=== PATIENT | female | born 1990 | race Caucasian/White ===

== ENCOUNTER 2017-07-04 15:37 | Emergency (ER) | payer OTHER ==
[2017-07-04] MEDS ORDERED: KETOROLAC 30 MG/1 ML SDV IVP ONE (16:02)
[2017-07-04] MEDS ORDERED: NS 1,000 ML IV ONE ×2 (16:02→16:12)
[2017-07-04 16:11] LABS: % IMMATURE GRANULYOCYTES 0.2 % (0.0-1.1); ABSOLUTE IMMATURE GRANULOCYTES 0.03 10^3/uL (0.00-0.10); ADD DIFF? NO; ADD MORPH? NO; ADD SCAN? NO; ATYPICAL LYMPHOCYTE FLAG 0 (0-99); FRAGMENT RBC FLAG 0 (0-99); HEMATOCRIT 40.2 % (38.0-47.0); HEMOGLOBIN 14.3 g/dL (12.6-16.3); LEFT SHIFT FLG 0 (0-99); LIPEMIA HEMOLYSIS FLAG 90 (0-99); MEAN CELL HEMOGLOBIN 32.1 pg (27.9-34.1); MEAN CELL HEMOGLOBIN CONCENTR. 35.6 g/dL (32.4-36.7); MEAN CELL VOLUME 90.3 fL (81.5-99.8); MEAN PLATELET VOLUME 10.2 fL (8.7-11.7); PLATELET CLUMPS FLAG 10 (0-99); PLATELET COUNT 299 10^3/uL (150-400); RED BLOOD CELL COUNT 4.45 10^6/uL (4.18-5.33); RED CELL DISTRIBUTION WIDTH 12.1 % (11.5-15.2)
--- NOTE | 2017-07-04 16:12 | EDPHY ---
H & P Stated Complaint: POss ruptured ectopic Source: Patient Exam Limitations: No limitations - Personal History LMP (Females 10-55): Current Tetanus Diphtheria and Acellular Pertussis (TDAP): Yes - Medical/Surgical History Hx Asthma: No Hx Chronic Respiratory Disease: No Hx Diabetes: No Hx Cardiac Disease: No Hx Renal Disease: No Hx Cirrhosis: No Hx Alcoholism: No Hx HIV/AIDS: No Hx Splenectomy or Spleen Trauma: No Other PMH: . depression/anxiety - Social History Smoking Status: Current some day smoker Time Seen by Provider: 07/04/17 16:09 HPI/ROS: HPI: This is a 26-year-old female who presents with Chief Complaint: Possible ruptured ectopic Location: Left lower quadrant Quality: Sharp constant pain Duration: 45 minutes prior to arrival Signs and Symptoms: no fever, no nausea, no vomiting, no hematemesis, no blood in stool, no abdominal bloating, no diarrhea, no back pain, no urinary symptoms , + vaginal bleeding, no vaginal discharge Timing: Sudden Severity: 10 out 10 Context: . Patient reports that her OBGYN, Dr. Ryanne Donahue diagnosed her with a left ectopic last ; she was placed on methotrexate on Tuesday. She reports that she has been bleeding vaginally intermittent and small amounts for the last 4 weeks. Approximately 45 minutes prior to arrival she started to experience left lower quadrant sharp constant severe pain that was nonradiating in nature. + chills. She is extremely worried that she has a ruptured ectopic . Modifying Factors: None Comment: ROS: see HPI Constitutional: No fever, no chills, no weight loss Eyes: No blurred vision Respiratory: No shortness of breath, no cough Cardiovascular: No chest pain, no palpitations Gastrointestinal: No nausea, no vomiting, no diarrhea, no hematemesis, no blood in stool Genitourinary: No dysuria, no blood in urine Extremities: No myalgias, no edema Neurologic: No weakness, no numbness Skin: No rashes, no petechiae Hematologic: No bruising, no bleeding MEDICAL/SURGICAL/SOCIAL HISTORY: Medical history: Generally healthy. Does not take any regular medications. Surgical history: Denies Social history: Employed. CONSTITUTIONAL: Ill-appearing with moderate distress young adult white female who is actively shivering, awake and alert, pleasant and cooperative HEENT: Atraumatic and normocephalic, PERRL, EOMI. Tympanic membranes clear. Oropharynx clear, no exudate and moist pink mucosa. Airway patent. No lymphadenopathy. No meningismus. Cardiovascular: Normal S1/S2, regular rate, regular rhythm, without murmur rub or gallop. PULMONARY/CHEST: Symmetrical and nontender. Clear to auscultation bilaterally. Good air movement. No accessory muscle usage. ABDOMEN: Soft, nondistended, severe left lower quadrant tenderness, no rebound , + guarding, no peritoneal signs, no masses or organomegaly. No CVAT. EXTREMITIES: 2/2 pulses, strength 5/5, no deformities, no clubbing, no cyanosis or edema. NEUROLOGICAL: no focal neuro deficits. GCS 15. SKIN: Warm and dry, no erythema. no rash. Good capillary refill. (Fatemeh Medrano) Constitutional: Initial Vital Signs Temperature (C) 36.5 C 07/04/17 15:49 Heart Rate 78 07/04/17 15:49 Respiratory Rate 18 07/04/17 15:49 Blood Pressure 89/47 L 07/04/17 15:49 O2 Sat (%) 96 07/04/17 15:49 O2 Delivery Mode Room Air Allergies/Adverse Reactions: No Known Allergies Allergy (Unverified 12/18/14 14:49) Home Medications: Medication Instructions Recorded Escitalopram Oxalate [Lexapro] 5 mg PO 07/04/17 Medical Decision Making - Diagnostics Imaging Results: Imaging Impressions Obstetrics Ultrasound 07/04/17 16:12 Impression: There is no evidence of a viable intrauterine , and there is a 5.7 cm left adnexal solid mass worrisome for an ectopic . There is a trace amount of free fluid in the left adnexal region. Findings were discussed with Dr. Lit Moralez at 18:10, on 07/04/2017. ED Course/Re-evaluation: Labs, IV fluids, ultrasound, IV medications ordered Given IV Toradol and IV morphine upon arrival Vital signs reviewed upon arrival; afebrile; and not tachycardic; systolic initially in the 80s but repeat 100-110 before IV fluids. 1632: Spoke with Dr. Donahue as patient was a very limited historian, she confirms that patient was diagnosed with a left ectopic on and started on methotrexate Tuesday. She reports that she also has history of severe anxiety. She agrees with laboratory workup as well as ultrasound. We are to call her with results to determine disposition. labs reviewed and shows leukocytosis, potassium 3.1 given p.o. supplementation 40 mEq and magnesium level ordered Serum HCG level 1075 1715: End of shift. Signed out to Dr. Moralez pending ultrasound evaluation final disposition. (Fatemeh Medrano) Differential Diagnosis: Differential diagnosis includes but is not limited to pyelonephritis, sepsis, ruptured ectopic . (Fatemeh Medrano) Other Provider: Independent physician documentation I evaluated and participated in the management of the patient. I also evaluated the patient independently. My co-signature indicates that I have reviewed this chart and I agree with the findings and plan of care as documented. My personal H&P findings include: The patient has a history of a known ectopic . The patient was prescribed methotrexate for treatment of this condition. She presents to the ED with complaints of left lower quadrant pain. The patient denies any lightheadedness, fever or vomiting. She denies syncope. She complains of moderate left lower quadrant pain. The patient did have an initial rise in her beta HCG following initiation of methotrexate. It was 1300 when checked earlier this morning. Physical Exam: General Appearance: Alert, no distress Eyes: Pupils equal and round no pallor or injection ENT, Mouth: Mucous membranes moist Respiratory: There are no retractions, lungs are clear to auscultation Cardiovascular: Regular rate and rhythm Gastrointestinal: Minimal tenderness to palpation left lower quadrant, no peritoneal signs Neurological: A&O, normal motor function, normal sensory exam, normal cranial nerves Skin: Warm and dry, no rashes Musculoskeletal: Neck is supple nontender Extremities: symmetrical, full range of motion ED course: Patient presents to the ED with complaints of left pelvic pain following recent initiation of methotrexate therapy for an ectopic . The patient's quantitative HCG level has decreased from 1300 to 1000. The patient was taken for a pelvic ultrasound which demonstrates no evidence of significant free fluid. The patient is noted to have a normal hematocrit. I spoke with Dr. Donahue who is the patient's primary reliability manager and we discussed the plan for continued follow up as an outpatient. The patient has been instructed to return to the ED for markedly worsening pain, lightheadedness, vaginal bleeding or other concerns. (Lit Moralez) - Data Points Laboratory Results: Laboratory Results 07/04/17 15:55 07/04/17 15:55 07/04/17 07/04/17 07/04/17 16:00 15:55 15:55 WBC RBC Hgb Hct MCV MCH MCHC RDW Plt Count MPV Neut % (Auto) Lymph % (Auto) [place] % (Auto) Eos % (Auto) Baso % (Auto) Nucleat RBC Rel Count Absolute Neuts (auto) Absolute Lymphs (auto) Absolute Monos (auto) Absolute Eos (auto) Absolute Basos (auto) Absolute Nucleated RBC Immature Gran % Immature Gran # Sodium 139 mEq/L mEq/L (134-144) Potassium 3.1 mEq/L L mEq/L (3.5-5.2) Chloride 103 mEq/L mEq/L (97-110) Carbon Dioxide 22 mEq/l mEq/l (22-31) Anion Gap 14 mEq/L mEq/L (8-16) BUN 11 mg/dL mg/dL (7-23) Creatinine 0.8 mg/dL mg/dL (0.6-1.0) Estimated GFR > 60 Glucose 121 mg/dL H mg/dL (70-100) Calcium 9.1 mg/dL mg/dL (8.5-10.4) Magnesium 2.0 mg/dL mg/dL (1.6-2.3) Total Bilirubin 1.7 mg/dL H mg/dL (0.1-1.4) Conjugated Bilirubin 0.0 mg/dL mg/dL (0.0-0.5) Unconjugated Bilirubin 1.7 mg/dL H mg/dL (0.0-1.1) AST 23 IU/L IU/L (14-46) ALT 27 IU/L IU/L (9-52) Alkaline Phosphatase 66 IU/L IU/L (38-126) Total Protein 7.1 g/dL g/dL (6.3-8.2) Albumin 4.4 g/dL g/dL (3.5-5.0) Beta HCG, Qual POSITIVE Beta HCG, Quant 1096.30 mIU/mL H mIU/mL (0.00-4.83) Patient ABO/Rh O POSITIVE Antibody Screen NEGATIVE 07/04/17 15:55 WBC 13.56 10^3/uL H 10^3/uL (3.80-9.50) RBC 4.45 10^6/uL 10^6/uL (4.18-5.33) Hgb 14.3 g/dL g/dL (12.6-16.3) Hct 40.2 % % (38.0-47.0) MCV 90.3 fL fL (81.5-99.8) MCH 32.1 pg pg (27.9-34.1) MCHC 35.6 g/dL g/dL (32.4-36.7) RDW 12.1 % % (11.5-15.2) Plt Count 299 10^3/uL 10^3/uL (150-400) MPV 10.2 fL fL (8.7-11.7) Neut % (Auto) 56.1 % % (39.3-74.2) Lymph % (Auto) 36.0 % % (15.0-45.0) [place] % (Auto) 4.4 % L % (4.5-13.0) Eos % (Auto) 2.7 % % (0.6-7.6) Baso % (Auto) 0.6 % % (0.3-1.7) Nucleat RBC Rel Count 0.0 % % (0.0-0.2) Absolute Neuts (auto) 7.61 10^3/uL H 10^3/uL (1.70-6.50) Absolute Lymphs (auto) 4.88 10^3/uL H 10^3/uL (1.00-3.00) Absolute Monos (auto) 0.60 10^3/uL 10^3/uL (0.30-0.80) Absolute Eos (auto) 0.36 10^3/uL 10^3/uL (0.03-0.40) Absolute Basos (auto) 0.08 10^3/uL 10^3/uL (0.02-0.10) Absolute Nucleated RBC 0.00 10^3/uL 10^3/uL (0-0.01) Immature Gran % 0.2 % % (0.0-1.1) Immature Gran # 0.03 10^3/uL 10^3/uL (0.00-0.10) Sodium Potassium Chloride Carbon Dioxide Anion Gap BUN Creatinine Estimated GFR Glucose Calcium Magnesium Total Bilirubin Conjugated Bilirubin Unconjugated Bilirubin AST ALT Alkaline Phosphatase Total Protein Albumin Beta HCG, Qual Beta HCG, Quant Patient ABO/Rh Antibody Screen Medications Given: Discontinued Medications Sodium Chloride (Ns) 1,000 mls @ 0 mls/hr IV ONCE ONE; Wide Open PRN Reason: Protocol Stop: 07/04/17 16:03 Last Admin: 07/04/17 16:30 Dose: 1,000 mls Sodium Chloride (Ns) 1,000 mls @ 0 mls/hr IV EDNOW ONE; Wide Open PRN Reason: Protocol Stop: 07/04/17 16:13 Last Admin: 07/04/17 16:35 Dose: 1,000 mls Ketorolac Tromethamine (Toradol) 30 mg IVP EDNOW ONE Stop: 07/04/17 16:03 Last Admin: 07/04/17 16:30 Dose: 30 mg Morphine Sulfate (Morphine) 6 mg IVP EDNOW ONE Stop: 07/04/17 16:08 Last Admin: 07/04/17 16:34 Dose: 6 mg Potassium Chloride (Potassium Chloride Oral Liquid) 40 meq PO EDNOW ONE Stop: 07/04/17 16:33 Last Admin: 07/04/17 17:43 Dose: 40 meq Departure - Departure Disposition: Home, Routine, Self-Care Clinical Impression: Ectopic of ovary Condition: Good Instructions: Ectopic (ED) Additional Instructions: 1. Please return to the ED for markedly worsening abdominal pain, lightheadedness, passing out, heavy vaginal bleeding or other concerns. 2. Please follow up as scheduled with Dr. Donahue. Referrals: Ryanne Donahue MD [Medical Doctor] - As per Instructions
[2017-07-04 16:19] VITALS: TEMP 97.7
[2017-07-04 16:22] VITALS: O2SAT 97
[2017-07-04 16:28] LABS: ANION GAP 14 mEq/L (8-16); CALCIUM 9.1 mg/dL (8.5-10.4); CARBON DIOXIDE 22 mEq/l (22-31); CHLORIDE 103 mEq/L (97-110); CREATININE 0.8 mg/dL (0.6-1.0); GLOMERULAR FILTRATION RATE > 60; GLUCOSE 121 mg/dL (70-100); POTASSIUM 3.1 mEq/L (3.5-5.2); SODIUM 139 mEq/L (134-144)
[2017-07-04] MEDS ORDERED: POTASSIUM CL 20 MEQ/15 ML UDCUP PO ONE (16:32)
[2017-07-04 16:42] LABS: ALANINE AMINOTRANSFERASE 27 IU/L (9-52); ALBUMIN 4.4 g/dL (3.5-5.0); ALKALINE PHOSPHATASE 66 IU/L (38-126); ASPARTATE AMINOTRANSFERASE 23 IU/L (14-46); BILIRUBIN,TOTAL 1.7 mg/dL (0.1-1.4); BILIRUBIN-UNCONJUGATED 1.7 mg/dL (0.0-1.1); TOTAL PROTEIN 7.1 g/dL (6.3-8.2)
[2017-07-04 19:21] VITALS: BP 113/63; PULSE 90; RESP 18
== END 2017-07-04 19:21 | disposition home or self-care (01) ==
DX: O00.202 Left ovarian pregnancy without intrauterine pregnancy (principal); F17.200 Nicotine dependence, unspecified, uncomplicated; O99.280 Endocrine, nutritional and metabolic diseases complicating pregnancy, unspecified trimester; E86.9 Volume depletion, unspecified; Z3A.00 Weeks of gestation of pregnancy not specified
CPT/HCPCS: 96374; J1885